=== PATIENT | male | born 1975 | race Caucasian/White ===

== ENCOUNTER 2016-12-27 10:30 | Emergency (ER) | payer OTHER ==
[2016-12-27] MEDS ORDERED: Aspirin 81 MG Tab.Chew PO ONE (10:41)
[2016-12-27] MEDS ORDERED: LORazepam 0.5 MG Tab PO ONE (10:42)
--- NOTE | 2016-12-27 10:48 | EDM.PDOC ---
ED HPI GENERAL MEDICAL PROBLEM - General Chief Complaint: Respiratory Problem Stated Complaint: SOB Time Seen by Provider: 12/27/16 10:35 Source of Information: Reports: Patient History Limitations: Reports: No Limitations - History of Present Illness INITIAL COMMENTS - FREE TEXT/NARRATIVE: 41 yo male was passing through our area today for work when he felt mildly SOB and mildly dizzy with mild SOB. No chest pain, nausea, or diaphoresis. BP was checked in the office a year ago and was found to be "a little high". Is on no regular meds. Denies cough, wheezing, or calf pain. No hx of the same. Denies being under added stress. Onset: Today Onset Date: 12/27/16 Duration: Hour(s):, Constant Location: Reports: Head, Chest (mild SOB) Quality: Reports: Other (No pain) Severity: Mild Improves with: Reports: None Worsens with: Reports: None Context: Reports: Other (unknown) Associated Symptoms: Reports: Shortness of Breath (mild), Other (tingling of face/finger tips). 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 Denies: Wheezing, Pleuritic Chest Pain, Cough, Sputum, Hemoptysis Cardiovascular: Reports: Lightheadedness (mild). Denies: Chest Pain, Claudication, Dyspnea on Exertion, Edema, Orthopnea, Palpitations Endocrine: Reports: No Symptoms GI/Abdominal: Reports: No Symptoms : Reports: No Symptoms Musculoskeletal: Reports: No Symptoms Skin: Reports: No Symptoms Neurological: Reports: Numbness (fingertips and around mouth.) Psychiatric: Reports: No Symptoms ED EXAM, DIZZINESS - Physical Exam Exam: See Below Exam Limited By: No Limitations General Appearance: Alert, WD/WN, No Apparent Distress, Obese Eye Exam: Bilateral Eye: Normal Inspection Ears: Normal External Exam, Normal Canal, Hearing Grossly Normal, Normal TMs Nose: Normal Inspection, Normal Mucosa Throat/Mouth: Normal Inspection, Normal Lips, Normal Teeth, Normal Oropharynx, Normal Voice, No Airway Compromise Head Exam: Atraumatic, Normocephalic Neck: Normal Inspection, Supple, Non-Tender Respiratory/Chest: No Respiratory Distress, Lungs Clear, Normal Breath Sounds, No Accessory Muscle Use Cardiovascular: Regular Rate, Rhythm, No Edema GI/Abdominal: Normal Bowel Sounds, Soft, Non-Tender, No Distention Neurological: Alert, Normal Mood/Affect, CN II-XII Intact, No Motor/Sensory Deficits, Oriented x 3 Extremities: Normal Inspection, Normal Range of Motion, Non-Tender, No Pedal Edema Psychiatric: Normal Affect, Normal Mood Skin Exam: Warm, Dry, Intact, Normal Color, No Rash Course - Vital Signs Last Recorded V/S: Last Vital Signs Temp 36.5 C 12/27/16 10:30 Pulse 70 12/27/16 10:30 Resp 16 12/27/16 10:30 BP 194/83 H 12/27/16 10:30 Pulse Ox 100 12/27/16 10:30 - Orders/Labs/Meds Labs: Laboratory Tests 12/27/16 12/27/16 Range/Units 10:45 10:45 Sodium 136 (135-145) mmol/L Potassium 4.3 (3.5-5.3) mmol/L Chloride 105 (100-110) mmol/L Carbon Dioxide 25 (23-29) mmol/L BUN 14 (5-20) mg/dL Creatinine 1.1 (0.6-1.3) mg/dL Est Cr Clr Drug Dosing TNP Estimated GFR (MDRD) > 60 (>60) BUN/Creatinine Ratio 12.7 (9-20) Glucose 118 H (80-116) mg/dL Calcium 9.0 (8.6-10.2) mg/dL Troponin I < 0.01 L (0.02-0.06) NG/ML Meds: Medications Discontinued Medications Generic Name Dose Route Start Last Admin Trade Name Freq PRN Reason Stop Dose Admin Aspirin 324 mg 12/27/16 10:41 12/27/16 10:50 Aspirin PO 12/27/16 10:42 324 mg ONETIME ONE Administration Lisinopril 40 mg 12/27/16 10:41 12/27/16 10:53 Prinivil PO 12/27/16 10:42 40 mg NOW STA Administration Lorazepam 0.5 mg 12/27/16 10:42 12/27/16 10:50 Ativan PO 12/27/16 10:43 0.5 mg ONETIME ONE Administration Departure - Departure Time of Disposition: 11:35 Disposition: Home, Self-Care 01 Condition: Good Clinical Impression: Hyperventilation syndrome Hypertension Qualifiers: Hypertension type: essential hypertension Qualified Code(s): I10 - Essential ( primary) hypertension - Discharge Information Referrals: PCP,None [Ordering Only Provider] - Forms: ED Department Discharge
[2016-12-27 12:00] VITALS: BP 159/88
== END 2016-12-27 11:40 | disposition home or self-care (01) ==
LOC: FB.ED 10:30
DX: F45.8 Other somatoform disorders (principal); I10 Essential (primary) hypertension; Z91.048 Other nonmedicinal substance allergy status
CPT/HCPCS: 36415; 80048; 84484; 99285; A9270